=== PATIENT | female | born 1975 | race Caucasian/White ===

== ENCOUNTER 2016-08-29 11:33 | Emergency (ER) | payer OTHER ==
[~2016-08-29] VITALS: Ht 157.5 cm; Wt 68.9 kg
[2016-08-29 11:43] VITALS: BP 137/87
--- NOTE | 2016-08-29 11:45 | NUR ---
PATIENT PRESENTS TO ED WITH HEADACHE X 1 WEEK, + PHOTOPHOBIA, STS HAD NOSEBLEED YESTERDAY, DENIES INJURY; DENIES N/V/D; SKIN IS PINK/WARM/DRY; AAOX4 WITH EVEN AND STEADY GAIT; LUNGS CLEAR BL; HR EVEN AND REGULAR; PT DENIES ANY FEVER, CP, SOB, OR COUGH AT THIS TIME; PATIENT STATES PAIN OF 10/10 AT THIS TIME; VSS; PATIENT POSITIONED FOR COMFORT; HOB ELEVATED; BEDRAILS UP X2; BED DOWN. ER MD MADE AWARE OF PT STATUS.
--- NOTE | 2016-08-29 12:24 | NUR ---
Dr. Joyner evaluating patient at bedside.
[2016-08-29] MEDS ORDERED: METOCLOPRAMIDE 10 MG TAB PO ONE (12:30)
[2016-08-29] MEDS ORDERED: DEXAMETHASONE 4 MG/ML VIAL PO ONE (12:30)
[2016-08-29] MEDS ORDERED: KETOROLAC 30 MG/ML VIAL IM ONE (12:30)
[2016-08-29] MEDS ORDERED: DEXAMETHASONE 10 MG/ML VIAL IVP ONE (12:50)
--- NOTE | 2016-08-29 12:50 | NUR ---
DECADRON GIVEN 10MG/2.5 ML PO ORIGINALLY ORDERED, RECIEVED 1 VIAL FROM PHARMACY 4MG/ML; 2 VIALS 4MG/ML TAKEN AT THE [facility]; INSTRUCTED BY PHARMACY MARY TO HAVE DR LIMA CHANGE ORDER TO IV TO BE ABLE TO WITHRAW DECADRON FROM [facility]; MEDS GIVEN PO ORIGINALLY ORDERED.
--- NOTE | 2016-08-29 12:55 | NUR ---
AAO, COOPERATIVE PT TAKEN TO CT SCAN FOR THE HEAD BY DESK OPERATOR VIA WHEELCHAIR
--- NOTE | 2016-08-29 13:30 | NUR ---
AAO PT STILL C/O PAIN 01/01 DR LIMA NOTIFIED WILL ORDER MORE PAIN MEDICATIONS
[2016-08-29] MEDS ORDERED: HYDROcodone/APAP 10/325 MG 1 TAB TAB PO PRN (13:35)
[2016-08-29] MEDS ORDERED: ONDANSETRON 4 MG ODT PO ONE (13:35)
--- NOTE | 2016-08-29 13:40 | NUR ---
AAO PT C/O PAIN 01/01 NORCO, ZOFRAN GIVEN PO ORDERED
[2016-08-29 14:34] VITALS: BP 138/84
--- NOTE | 2016-08-29 14:34 | NUR ---
Patient discharged with v/s stable. Written and verbal after care instructions given and explained. Patient alert, oriented and verbalized understanding of instructions. Ambulatory with steady gait. All questions addressed prior to discharge. ID band removed. Patient advised to follow up with PMD. Rx of MOTRIN, ZOFRAN, NORCO given. Patient educated on indication of medication including possible reaction and side effects. Opportunity to ask questions provided and answered.
== END 2016-08-29 14:34 | disposition home or self-care (01) ==
LOC: MED 11:33
DX: G43.809 Other migraine, not intractable, without status migrainosus (principal); F17.210 Nicotine dependence, cigarettes, uncomplicated; F41.9 Anxiety disorder, unspecified; Z71.6 Tobacco abuse counseling
CPT/HCPCS: 70450; 81002; 81025; 96372; 99284; J1100; J1885; J8597; Q0163; S0119

== ENCOUNTER 2016-11-23 17:46 | Emergency (ER) | payer OTHER ==
[~2016-11-23] VITALS: Ht 157.5 cm; Wt 69.4 kg
[2016-11-23 18:17] VITALS: BP 135/63
--- NOTE | 2016-11-23 20:09 | NUR ---
PT TAKEN TO BED 5
--- NOTE | 2016-11-23 20:11 | NUR ---
PT BIB SELF C/O LLQ PAIN THAT RADIATES DOWN LEFT LEG X3 DAYS. HX MIGRAINESPT DENIES N/V/D; SKIN IS INTACT, PINK/WARM/DRY; AAOX4, PERRL, WITH EVEN AND STEADY GAIT; LUNGS CLEAR BL, BREATHING UNLABORED; HR EVEN AND REGULAR, BL PERIPHERAL PULSES PRESENT; BS ACTIVE X4, NO TENDERNESS TO PALPATION. PT DENIES ANY FEVER, CP, SOB, OR COUGH AT THIS TIME; PT STATES 5/10 PAIN AT THIS TIME; VSS; PATIENT POSITIONED FOR COMFORT; HOB ELEVATED; BEDRAILS UP X2; BED DOWN.UA DONE. ER TO JUAN
--- NOTE | 2016-11-23 20:29 | NUR ---
Dr. Faith evaluating patient at bedside.
[2016-11-23] MEDS ORDERED: KETOROLAC 60 MG/2 ML VIAL IM ONE (20:35)
--- NOTE | 2016-11-23 21:29 | NUR ---
Patient discharged with v/s stable. Written and verbal after care instructions given and explained. Patient alert, oriented and verbalized understanding of instructions. Ambulatory with steady gait. All questions addressed prior to discharge. ID band removed. Patient advised to follow up with PMD. Rx of MOTRIN, NORCO AND ZOFRAN given. Patient educated on indication of medication including possible reaction and side effects. Opportunity to ask questions provided and answered.
[2016-11-23 21:30] VITALS: BP 129/65
== END 2016-11-23 21:29 | disposition home or self-care (01) ==
LOC: MED 17:46
DX: R10.32 Left lower quadrant pain (principal); R50.9 Fever, unspecified; R11.2 Nausea with vomiting, unspecified
CPT/HCPCS: 81002; 81025; 96372; 99283; J1885

== ENCOUNTER 2017-03-18 18:50 | Emergency (ER) | payer OTHER ==
[~2017-03-18] VITALS: Ht 157.5 cm; Wt 67.1 kg
[2017-03-18 18:56] VITALS: BP 141/64
[2017-03-18 19:39] LABS: BASOPHILS # (AUTO) 0.2 K/uL (0.00-0.22); BASOPHILS % (AUTO) 1.8 % (0.0-2.0); EOSINOPHILS # (AUTO) 0.3 K/uL (0-0.4); EOSINOPHILS % (AUTO) 2.8 % (0.0-4.0); HEMATOCRIT 39.2 % (36-48); HEMOGLOBIN 12.8 g/dL (12.0-16.0); LYMPHOCYTES # (AUTO) 3.4 K/uL (2.5-16.5); LYMPHOCYTES % (AUTO) 31.6 % (20.5-51.1); MEAN CORPUSCULAR HEMOGLOBIN 30 pg (27-31); MEAN CORPUSCULAR HGB CONC 33 g/dL (33-37); MEAN CORPUSCULAR VOLUME 92 fL (80-94); MONOCYTES # (AUTO) 0.5 K/uL (0.8-1.0); MONOCYTES % (AUTO) 4.8 % (1.7-9.3); NEUTROPHILS # (AUTO) 6.4 K/uL (1.8-7.7); PLATELET COUNT (AUTO) 292 K/uL (140-450); RED BLOOD CELL COUNT(AUTO) 4.27 MIL/uL (4.20-5.40); RED CELL DISTRIBUTION WIDTH 12.4 % (11.6-13.7); WHITE BLOOD COUNT (AUTO) 10.8 K/uL (4.8-10.8)
[2017-03-18 19:46] LABS: APPEARANCE,URINE CLEAR (CLEAR); BILIRUBIN,URINE NEGATIVE (NEGATIVE); BLOOD, URINE NEGATIVE (NEGATIVE); COLOR,URINE YELLOW (YELLOW); LEUKOCYTE ESTERASE ,URINE NEGATIVE (NEGATIVE); NITRITE, URINE NEGATIVE (NEGATIVE); PH,URINE 6.5 (5.0-9.0); UGLUCOSE NEGATIVE (NEGATIVE)
--- NOTE | 2017-03-18 19:56 | NUR ---
AMBULATED TO ER BED 3
[2017-03-18 19:59] LABS: ALBUMIN 3.8 g/dL (3.4-5.0); ANION GAP 10.8 (8-16); CARBON DIOXIDE 29.9 mmol/L (21-32); CREATININE 0.8 mg/dL (0.6-1.3); POTASSIUM 3.7 mmol/L (3.5-5.1); TOTAL BILIRUBIN 0.3 mg/dL (0.0-1.0)
--- NOTE | 2017-03-18 20:00 | NUR ---
PATIENT PRESENTS TO ED WITH C/O ABD PAIN WITH N/V X 5 DAY. HX OF KIDNEY STONES. PT SKIN IS PINK/WARM/DRY; AAOX4 WITH EVEN AND STEADY GAIT; LUNGS CLEAR BL; HR EVEN AND REGULAR; PT DENIES ANY FEVER, CP, SOB, OR COUGH AT THIS TIME; PATIENT STATES PAIN OF 7/10 AT THIS TIME; VSS; PATIENT POSITIONED FOR COMFORT; HOB ELEVATED; BEDRAILS UP X2; BED DOWN. ER MD MADE AWARE OF PT STATUS.
[2017-03-18] MEDS ORDERED: ZOLP5TAB1 PO (20:25)
[2017-03-18] MEDS ORDERED: TAMS0.4C96 PO (20:25)
[2017-03-18] MEDS ORDERED: ACET-2858 PO (20:25)
[2017-03-18] MEDS ORDERED: IND20 PO (20:25)
[2017-03-18] MEDS ORDERED: NACL 0.9% 1,000 ML IV SCH (20:40)
[2017-03-18] MEDS ORDERED: KETOROLAC 30 MG/ML VIAL IVP ONE (20:40)
[2017-03-18 23:55] VITALS: BP 141/64
== END 2017-03-18 23:55 | disposition home or self-care (01) ==
LOC: MED 18:50
DX: S39.012A Strain of muscle, fascia and tendon of lower back, initial encounter (principal); F17.200 Nicotine dependence, unspecified, uncomplicated; Z71.6 Tobacco abuse counseling; X58.XXXA Exposure to other specified factors, initial encounter; Y93.89 Activity, other specified; Y92.89 Other specified places as the place of occurrence of the external cause; Y99.8 Other external cause status
CPT/HCPCS: 36415; 74176; 76856; 80053; 81003; 82150; 83690; 84703; 85025; 96361; 96374; 99285; J1885; J7030